=== PATIENT | male | born 1975 | race African-American/Black ===

== ENCOUNTER 2018-12-04 11:43 | Emergency (ER) | payer SELFPAY ==
[~2018-12-04] VITALS: Ht 180.3 cm; Wt 131.5 kg
[2018-12-04] MEDS ORDERED: AMLODIPINE BESYL5 MG ORAL (11:54)
--- NOTE | 2018-12-04 12:24 | NUR ---
ED Nurse Note: PT WALKED IN TO ER TODAY FROM HOME. AOX4. PT C/O NONRADIATING MEDIAL CHEST PAIN AND SOB X 1 HOUR AGO. PT STATES PAIN IS CURRENTLY 1/10 AND DENIES SOB AT THIS TIME. RR14, 02SAT 100% ON RA. NO SIGNS OF RESPIRATORY DISTRESS, RETRACTIONS, OR ACCESSORY MUSCLE USE NOTED. PT ABLE TO SPEAK IN FULL SENTENCES.
--- NOTE | 2018-12-04 12:25 | NUR ---
ED Nurse Note: EKG: NORMAL SINUS WITH MULTIPLE T-WAVE INVERSIONS.
[2018-12-04 12:27] VITALS: BP 163/87
[2018-12-04 12:31] LABS: BASOPHILS % (AUTO) 1.6 % (0.0-2.0); EOSINOPHILS % (AUTO) 5.2 % (0.0-3.0); HEMATOCRIT 44.6 % (42.0-52.0); HEMOGLOBIN 13.5 G/DL (14.2-18.0); LYMPHOCYTES % (AUTO) 24.4 % (20.0-45.0); MEAN CORPUSCULAR VOLUME 77 FL (80-99); MONOCYTES % (AUTO) 5.9 % (1.0-10.0); NEUTROPHILS % (AUTO) 62.8 % (45.0-75.0); PLATELET COUNT 183 K/UL (150-450); RED CELL DISTRIBUTION WIDTH 12.5 % (11.6-14.8); WHITE BLOOD COUNT 5.7 K/UL (4.8-10.8)
[2018-12-04 12:48] LABS: ANION GAP 7 mmol/L (5-15); BLOOD UREA NITROGEN 7 mg/dL (7-18); CALCIUM 9.1 MG/DL (8.5-10.1); CARBON DIOXIDE 30 MMOL/L (21-32); CHLORIDE 104 MMOL/L (98-107); CREATININE 1.3 MG/DL (0.55-1.30); SODIUM 141 MMOL/L (136-145)
[2018-12-04 13:02] LABS: ALANINE AMINOTRANSFERASE 30 U/L (12-78); ALBUMIN/GLOBULIN RATIO 1.1 (1.0-2.7); ALKALINE PHOSPHATASE 72 U/L (46-116); ASPARTATE AMINO TRANSFERASE 15 U/L (15-37); BILIRUBIN,TOTAL 0.6 MG/DL (0.2-1.0); CKMB 0.9 NG/ML (0.0-3.6); CREATINE KINASE 139 U/L (26-308)
--- NOTE | 2018-12-04 13:07 | NUR ---
ED Nurse Note: XRAY AT BEDSIDE.
[2018-12-04 14:25] VITALS: BP 147/78
--- NOTE | 2018-12-04 14:26 | NUR ---
ED Nurse Note: PT LAYING PEACEFULLY IN BED IN NAD. AOX4. DISCHARGE PAPERWORK EXPLAINED TO PT. PT VERBALIZES UNDERSTANDING AND ALL QUESTIONS ANSWERED. DISCHARGE PAPERWORK GIVEN TO PT, IV AND ID WRISTBAND REMOVED. PT WALKED OUT OF ER WITH STEADY GAIT AND ALL BELONGINGS.
--- NOTE | 2018-12-04 16:06 | Diagnostic Imaging Report ---
Indication: Chest pain Technique: One view of the chest Comparison: none Findings: Lungs and pleural spaces are clear. The heart size is normal. No significant interim change Impression:
--- NOTE | 2018-12-04 20:34 | Emergency Room Report ---
History of Present Illness General Chief Complaint: Chest Pain Source: Patient Present Illness HPI Patient 43-year-old male who presented after increased chest discomfort. Patient reports having intermittent symptoms lasting several minutes at a time. Patient states that he had missed a dose of his blood pressure medication this morning and had dilated proximal 3 hours compared to her usually takes it. He noticed his blood pressure was somewhat elevated. He has been taking amlodipine 5 mg. Patient normally takes this at 7:00 in the morning instead took it at 10. He reports having no current symptoms. He denies any fever. He denies any productive cough. He denies any recent leg pain or swelling. He reports having prior cardiac work-up fluid in the past 6 months. He states he also had a negative CT imaging of his chest. Allergies: Coded Allergies: ASPIRIN (Verified Allergy, Unknown, 12/04/18) PENICILLINS (Unverified Allergy, Unknown, 12/04/18) Uncoded Allergies: PENICILLIN (Allergy, Unknown, 12/04/18) Patient History Past Medical History: see triage record Reviewed Nursing Documentation: PMH: Agreed; PSxH: Agreed Nursing Documentation-PMH Hx Hypertension: Yes Review of Systems All Other Systems: negative except mentioned in HPI Physical Exam Vital Signs Date Time Temp Pulse Resp B/P (MAP) Pulse Ox O2 Delivery O2 Flow Rate FiO2 12/04/18 11:51 97.9 69 16 177/96 (123) 98 Room Air General Appearance: well appearing, no apparent distress, GCS 15 Eyes: bilateral eye normal inspection ENT: normal ENT inspection, hearing grossly normal Neck: full range of motion Respiratory: lungs clear, normal breath sounds Cardiovascular #1: normal peripheral pulses, no edema Gastrointestinal: normal inspection Musculoskeletal: normal inspection Neurologic: normal inspection, alert, oriented x3, responsive, 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 Differential diagnosis include was not limited to acute coronary syndrome, pulmonary embolism, hypertensive crisis, anxiety among others. Because of complexity of patient's case laboratory testing and imaging studies were ordered. Patient was noted to have EKG with inferior lateral T wave inversion. Patient reports having a recent prior work- up with EKG findings that were consistent with this EKG. Patient also stated that he had a stress test performed within the past 6 months. This was also negative. Patient reportedly had been seen by 2 cardiologists and told that this abnormality was physiologic. Patient laboratory testing was unremarkable. Patient's chest discomfort resolved spontaneously. He was advised to return if he had any recurrence of pain.Patient was advised to follow-up for outpatient stress testing again. Labs Test 12/04/18 12:20 White Blood Count 5.7 K/UL (4.8-10.8) Red Blood Count 5.80 M/UL (4.70-6.10) Hemoglobin 13.5 G/DL (14.2-18.0) Hematocrit 44.6 % (42.0-52.0) Mean Corpuscular Volume 77 FL (80-99) Mean Corpuscular Hemoglobin 23.3 PG (27.0-31.0) Mean Corpuscular Hemoglobin Concent 30.3 G/DL (32.0-36.0) Red Cell Distribution Width 12.5 % (11.6-14.8) Platelet Count 183 K/UL (150-450) Mean Platelet Volume 10.3 FL (6.5-10.1) Neutrophils (%) (Auto) 62.8 % (45.0-75.0) Lymphocytes (%) (Auto) 24.4 % (20.0-45.0) Monocytes (%) (Auto) 5.9 % (1.0-10.0) Eosinophils (%) (Auto) 5.2 % (0.0-3.0) Basophils (%) (Auto) 1.6 % (0.0-2.0) D-Dimer 0.19 mg/L FEU (0.00-0.49) Sodium Level 141 MMOL/L (136-145) Potassium Level 4.0 MMOL/L (3.5-5.1) Chloride Level 104 MMOL/L (98-107) Carbon Dioxide Level 30 MMOL/L (21-32) Anion Gap 7 mmol/L (5-15) Blood Urea Nitrogen 7 mg/dL (7-18) Creatinine 1.3 MG/DL (0.55-1.30) Estimat Glomerular Filtration Rate > 60 mL/min (>60) Glucose Level 139 MG/DL (74-106) Calcium Level 9.1 MG/DL (8.5-10.1) Total Bilirubin 0.6 MG/DL (0.2-1.0) Aspartate Amino Transf (AST/SGOT) 15 U/L (15-37) Alanine Aminotransferase (ALT/SGPT) 30 U/L (12-78) Alkaline Phosphatase 72 U/L (46-116) Total Creatine Kinase 139 U/L (26-308) Creatine Kinase MB 0.9 NG/ML (0.0-3.6) Creatine Kinase MB Relative Index 0.6 Troponin I 0.000 ng/mL (0.000-0.056) Pro-B-Type Natriuretic Peptide 23 pg/mL (0-125) Total Protein 7.7 G/DL (6.4-8.2) Albumin 4.0 G/DL (3.4-5.0) Globulin 3.7 g/dL Albumin/Globulin Ratio 1.1 (1.0-2.7) Lipase 81 U/L (73-393) EKG Diagnostic Results Rate: normal Rhythm: NSR ST Segments: other - lateral inferior twave inversion. Last Vital Signs Date Time Temp Pulse Resp B/P (MAP) Pulse Ox O2 Delivery O2 Flow Rate FiO2 12/04/18 14:25 98.3 64 16 147/78 100 Room Air Status: improved Disposition: HOME, SELF-CARE Condition: Stable Referrals: NOT CHOSEN IPA/,REFERRING (PCP) Patient Instructions: Nonspecific Chest Pain Bernardo Romero MD Dec 04, 2018 20:34
--- NOTE | 2018-12-06 19:34 | Cardiology Report ---
APPROVED REPORT EKG Measurement Heart [id number] HI [id number] Normal sinus rhythm Possible septal infarct, age undetermined T wave abnormality, consider inferolateral ischemia Abnormal ECG
== END 2018-12-04 14:26 | disposition home or self-care (01) ==
LOC: EMR 12:25
DX: I10 Essential (primary) hypertension (principal); R07.9 Chest pain, unspecified; Z88.0 Allergy status to penicillin; Z88.6 Allergy status to analgesic agent
CPT/HCPCS: 36415; 71045; 80053; 82550; 82553; 83690; 83880; 84484; 85025; 85379; 93005; 99284